=== PATIENT | female | born 1995 | race Caucasian/White ===

== ENCOUNTER 2019-06-11 00:11 | Emergency (ER) | payer OTHER ==
[~2019-06-11] VITALS: Ht 152.4 cm; Wt 56.0 kg
[2019-06-11 00:15] VITALS: BP 100/56
[2019-06-11] MEDS ORDERED: IV NORMAL SALINE 1,000ML 1,000 ML IV ONE (00:30)
--- NOTE | 2019-06-11 00:57 | PHYS DOC ---
Adult General Chief Complaint Chief Complaint: BLOOD IN URINE HPI HPI 23-year-old female that is 21 weeks' presents with right flank pain and possible hematuria. She called her OB was concerned she might have vaginal bleeding. She thinks it's more likely to be from her urine. Patient has a histor y of kidney stones. She has not had to have stent or lithotripsy in the past. She started to have dysuria earlier today. The right flank pain started this evening and is so strong she is unable to lie down or go to sleep. She denies vomiting or nausea. Denies fever or chills Review of Systems Review of Systems Constitutional: Denies fever or chills [] Eyes: Denies change in visual acuity, redness, or eye pain [] HENT: Denies nasal congestion or sore throat [] Respiratory: Denies cough or shortness of breath [] Cardiovascular: No additional information not addressed in HPI [] GI: Denies abdominal pain, nausea, vomiting, bloody stools or diarrhea [] : Denies dysuria or hematuria [] Musculoskeletal: Right flank pain [] Integument: Denies rash or skin lesions [] Neurologic: Denies headache, focal weakness or sensory changes [] Endocrine: Denies polyuria or polydipsia [] All other systems were reviewed and found to be within normal limits, except as documented in this note. Current Medications Current Medications Current Medications Medications (Trade) Dose Ordered Sig/Vinicius Start Time Stop Time Status Last Admin Dose Admin Sodium Chloride 1,000 ml @ 1,000 mls/hr 1X ONCE 06/11/19 00:30 06/11/19 01:29 UNV Physical Exam Physical Exam Constitutional: Well developed, well nourished, no acute distress, non-toxic appearance. [] HENT: Normocephalic, atraumatic, bilateral external ears normal, oropharynx moist, no oral exudates, nose normal. [] Eyes: PERRLA, EOMI, conjunctiva normal, no discharge. [] Neck: Normal range of motion, no tenderness, supple, no stridor. [] Cardiovascular:Heart rate regular rhythm, no murmur [] Lungs & Thorax: Bilateral breath sounds clear to auscultation [] Abdomen: Bowel sounds normal, gravid uterus, no masses, no pulsatile masses. [] Skin: Warm, dry, no erythema, no rash. [] Back: No tenderness, right CVA tenderness. [] Extremities: No tenderness, no cyanosis, no clubbing, ROM intact, no edema. [] Neurologic: Alert and oriented X 3, normal motor function, normal sensory function, no focal deficits noted. [] Psychologic: Affect normal, judgement normal, mood normal. [] EKG EKG [] Radiology/Procedures Radiology/Procedures [] Course & Med Decision Making Course & Med Decision Making Pertinent Labs and Imaging studies reviewed. (See chart for details) The patient's labs are unremarkable. Her urinalysis is negative for infection. It is negative for blood. Ultrasound showed a live intrauterine baby with no complications. There was no obstruction or hydronephrosis of the ureters or kidneys. It's possible patient passed a stone earlier today. She will follow up with her OB as needed. She is stable for discharge at this time. [] Dragon Disclaimer Dragon Disclaimer This electronic medical record was generated, in whole or in part, using a voice recognition dictation system. Departure Departure: Impression: Primary Impression: Additional Impression: Right flank pain Disposition: 01 HOME, SELF-CARE Condition: STABLE Problem Qualifiers Primary Impression: Weeks of gestation: 21 weeks Qualified Codes: Z3A.21 - 21 weeks gestation of WENDY LAI DO Jun 11, 2019 00:57
[2019-06-11 01:22] LABS: BASO % 0 % (0-3); EOS # 0.1 x10^3/uL (0.0-0.7); EOS % 1 % (0-3); HEMATOCRIT 33.3 % (36.0-47.0); HEMOGLOBIN 11.3 g/dL (12.0-15.5); LYMPH # 2.1 x10^3/uL (1.0-4.8); LYMPH % 29 % (24-48); MEAN CORPUSCULAR HEMOGLOBIN 29 pg (25-35); MEAN CORPUSCULAR HGB CONC 34 g/dL (31-37); MEAN CORPUSCULAR VOLUME 86 fL (79-100); MONO # 0.6 x10^3/uL (0.0-1.1); MONO % 9 % (0-9); NEUT # 4.5 x10^3uL (1.8-7.7); NEUT % 61 % (31-73); PLATELET COUNT 254 x10^3/uL (140-400); RED BLOOD COUNT 3.86 x10^6/uL (3.50-5.40); RED CELL DISTRIBUTION WIDTH 14.7 % (11.5-14.5); WHITE BLOOD COUNT 7.4 x10^3/uL (4.0-11.0)
[2019-06-11 01:29] LABS: CALCIUM 8.5 mg/dL (8.5-10.1); CREATININE 0.6 mg/dL (0.6-1.0); GFR 123.9; POTASSIUM 4.1 mmol/L (3.5-5.1)
[2019-06-11 01:33] LABS: BACTERIA,URINE MOD /HPF (0-FEW); BILIRUBIN,URINE NEG (NEG); CLARITY,URINE HAZY; COLOR,URINE YELLOW; GLUCOSE,URINE NEG (NEG); NITRITE,URINE NEG (NEG); RBC,URINE OCC /HPF (0-2); SQUAMOUS EPITHELIAL CELL,UR MOD /LPF; UROBILINOGEN,URINE 0.2 mg/dL (0.2 mg/dL)
[2019-06-11 01:35] LABS: ALBUMIN 2.9 g/dL (3.4-5.0); ALBUMIN/GLOBULIN RATIO 0.8 (1.0-1.7); TOTAL BILIRUBIN 0.3 mg/dL (0.2-1.0); TOTAL PROTEIN 6.4 g/dL (6.4-8.2)
--- NOTE | 2019-06-11 02:15 | RAD ---
Bilateral renal ultrasound complete: Reason for examination: with right flank pain. Evaluate for kidney stone. The right kidney measures 9.7 x 4.7 x 4.1 cm in greatest dimension and shows normal cortical medullary differentiation with no mass or hydronephrosis. There is normal vascular flow. The left kidney measures 9.4 x 4.6 x 3.8 cm in greatest dimension and shows normal cortical medullary differentiation with no mass or hydronephrosis. There is normal vascular flow. No abnormality seen at the bladder. Bilateral ureteral jets were visualized. IMPRESSION: No abnormality seen at the kidneys or bladder. No evidence of renal calculus or obstructive uropathy. Obstetric ultrasound first trimester: The ovaries were not identified. No free fluid is seen in the maternal pelvis. Single viable intrauterine gestation is present with cardiac activity at a rate of 152 bpm. Placenta appears to be located anteriorly. There is adequate amniotic fluid present. Biparietal diameter is estimated at 5.05 cm corresponding to gestational age of 21 weeks 2 days. Head circumference is 19.04 cm corresponding to gestational age of 21 weeks 2 days. Abdominal circumference is 16.04 cm corresponding to gestational age of 21 weeks 1 day. Femur length was 3.53 cm corresponding to gestational age of 21 weeks 1 day. Estimated weight was 404 g. Cephalic index is 87.8. Head circumference to abdominal circumference is 1.19 Femur length to biparietal diameter ratio is 69.9. Femur length to head circumference ratio is 18.5. Femur length to abdominal circumference ratio is 22.0. Mean gestational age by ultrasound is 21 weeks 2 days with estimated date of confinement of 10/20/2019 which corresponds adequately with clinical dates. IMPRESSION: Single viable intrauterine gestation with a mean gestational age estimated at 21 weeks 2 days with estimated date of confinement of 10/20/2019. Electronically signed by: Ana Baker MD (06/11/2019 2:12 AM) [id number]
[2019-06-12] MEDS ORDERED: IV NORMAL SALINE 1,000ML 1,000 ML IV ONE (11:00)
== END 2019-06-11 02:50 | disposition home or self-care (01) ==
LOC: ER 00:11
DX: O26.892 Other specified pregnancy related conditions, second trimester (principal); R10.9 Unspecified abdominal pain; Z3A.21 21 weeks gestation of pregnancy
CPT/HCPCS: 36415; 76770; 76815; 80053; 81001; 85025; 87086; 99285-25; J7030